=== PATIENT | female | born 1995 | race Caucasian/White ===

== ENCOUNTER → 2020-11-18 | Outpatient (CLI) | payer BC ==
--- NOTE | 2020-11-18 09:08 | US ---
EXAMINATION TYPE: US pelvis complete transvag DATE OF EXAM: 11/18/2020 COMPARISON: NONE CLINICAL HISTORY: N91.1 SECONDARY AMENORRHEA. Amenorrhea TECHNIQUE: Transvaginal (TV) and Transabdominal (TA) . Date of LMP: 4 months ago EXAM MEASUREMENTS: Uterus: 7.5 x 3.3 x 4.1 cm Endometrial Stripe: .7 cm Right Ovary: 2.4 x 1.4 x 1.4 cm Left Ovary: 3.0 x 1.5 x 1.5 cm 1. Uterus: Anteverted wnl 2. Endometrium: wnl 3. Right Ovary: wnl 4. Left Ovary: wnl 5. Bilateral Adnexa: wnl 6. Posterior cul-de-sac: wnl IMPRESSION: Unremarkable study.
== END | disposition home or self-care (01) ==
LOC: RADUSWWP 08:10
PROVIDERS: ATTEND Family Medicine
DX: N91.1 Secondary amenorrhea (principal)
CPT/HCPCS: 76830; 76856